=== PATIENT | male | born 2000 | race Two or more races ===

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

== ENCOUNTER 2023-12-04 21:02 | Emergency (ER) | payer OTHER ==
[~2023-12-04] VITALS: Ht 170.2 cm; Wt 70.3 kg
[~2023-12-04 21:02] MED LIST: ACETAMINOPHEN650 M2 PO; MUCINEX DM ER1 EAC1 PO
[2023-12-04] MEDS ORDERED: ZESTRIL5 MG (21:38)
[2023-12-04] MEDS ORDERED: KETOROLAC TROMETHAMINE 60 MG VIAL IM STA (22:05)
[2023-12-04] MEDS ORDERED: OxyCODONE HCL/APAP UD (PERCOCET) PO STA (22:42)
== END 2023-12-04 23:39 | disposition home or self-care (01) ==
LOC: ER 21:04
DX: S93.491A Sprain of other ligament of right ankle, initial encounter (principal); X37.1XXA Tornado, initial encounter; Y93.89 Activity, other specified; Y92.89 Other specified places as the place of occurrence of the external cause
CPT/HCPCS: 73600; 73620; 96372; 99283; J1885